=== PATIENT | female | born 1985 | race Caucasian/White ===

== ENCOUNTER 2018-02-18 13:15 | Inpatient (IN) | payer OTHER ==
[2018-02-18] MEDS ORDERED: OLIVE OIL 118 ML BTL MISC PRN (13:57)
[2018-02-18] MEDS ORDERED: MISOPROSTOL 200 MCG TAB PR PRN (13:57)
[2018-02-18] MEDS ORDERED: LIDOCAINE 1% 300 MG/30 ML SDV SC PRN (13:57)
[2018-02-18] MEDS ORDERED: LR 1,000 ML IV PRN (13:57)
[2018-02-18] MEDS ORDERED: TERBUTALINE SULFATE 1 MG/ML VIAL IV PRN (13:57)
[2018-02-18] MEDS ORDERED: IBUPROFEN 600 MG TAB PO PRN (13:57)
[2018-02-18] MEDS ORDERED: OXYTOCIN/RINGERS LACTATE 1,000 ML IV PRN (13:57)
[2018-02-18] MEDS ORDERED: EPSOM SALT 454 GM TP PRN (13:57)
[2018-02-18 14:17] LABS: PLATELET COUNT 177 10^3/uL (150-400)
[2018-02-18] MEDS ORDERED: AMMONIA AROMATIC 1 EACH AMP IH ONE (16:33)
[2018-02-18] MEDS ORDERED: OXYTOCIN 10 UNIT/ML VIAL ONE (16:34)
--- NOTE | 2018-02-18 17:43 | GHP ---
DATE OF ADMISSION: 02/18/2018 HISTORY UPON ADMISSION: The patient is a 32-year-old, G1, P0, at 39 weeks' gestation with an estimated due date of 02/25/2018, established by an 8-week ultrasound, who presents to Labor and Delivery after an ultrasound at the office today revealed oligohydramnios. The patient has been advised for induction due to the oligo and has been admitted to Labor and Delivery with initial blood work drawn and monitoring. The patient currently reports good movement, has bag of water intact, and no bleeding. The patient had stronger contractions on Sunday night that were a couple hours, approximately 6-7 minutes apart; however, these spontaneously resolved. The patient denies headache, nausea, vomiting, scotomata. The patient has not had a recent cervical exam. Recently, at [facility], [place], the patient was noted to have proteinuria on an office visit, at which point her blood pressure was totally normal and the patient was sent for PIH labs and urine protein checks. The patient was found to have normal PIH labs except for a uric acid of 7.1 and her platelets were 199,000. Her P to C ratio was elevated at 3.8. The patient had an ultrasound scheduled due to size less than dates, which was performed today. The estimated weight today is noted at 19th percentile, 6 pounds 11 ounces, and Dopplers were normal. Her total MINDI was only 3.7 cm with an MVP only at 2 cm. Grade 3 placenta. LABS: The patient's blood type is B positive with negative antibody screen. Initial CBC revealed a hematocrit of 36%, which has remained stable on several checks. Initial platelet level was 133,000 and this was rechecked in mid and was 196,000. RPR is nonreactive. Rubella immune. Hepatitis B surface antigen negative. HIV negative. Thyroid function testing was normal. Varicella showed immunity. Urinalysis and culture were negative. Verifi testing was negative and MSAFP was normal. 1-hour Glucola was normal. GBS culture was negative. CARE: The patient has been with [facility], [place] since 8 weeks gestation. By last menstrual on the 1st visit, the patient was felt to be over 11 weeks by last period, but the ultrasound revealed only 8 weeks 1 day. This established her due date of 02/25/2018. The patient had brownish spotting in the first trimester and ultrasound performed that showed a low-lying placenta previa. The patient's followup ultrasound at 20 weeks revealed the anterior placenta, but it was no longer low-lying. The patient had episodes in the late 1st trimester that were vasovagal episodes and near-syncope. The patient was encouraged to increase hydration and has been very diligent with that. The patient's exam at 34 weeks revealed size less than dates and she had an ultrasound performed showing an estimated weight at 29th percentile with a grade 3 placenta. Fluid level at that time was totally reassuring. See above for the more recent details of proteinuria. PAST MEDICAL HISTORY: Irregular menstrual cycles, exercise-induced asthma with no need for medication for years. Mild anemia in the past. PAST SURGICAL HISTORY: Odontectomy in high school, skin mole resections. ALLERGIES: To Augmentin, causing hives. CURRENT MEDICATIONS: vitamins, fish oil, calcium, iron supplement daily. SOCIAL HISTORY: The patient is . Her 's name is Rich. The patient is a nonsmoker. No alcohol or drug use. PHYSICAL EXAMINATION: GENERAL: Upon admission, the patient is a well-developed , well-nourished white female, with no signs of distress. The patient and her feel like they are managing the news of the oligohydramnios well and do not appear too anxious. VITAL SIGNS: The patient is afebrile. Blood pressure 122/74. LUNGS: Clear to auscultation bilaterally. CARDIOVASCULAR: Regular rate and rhythm. ABDOMEN: Reveals tracing showing a category 1 tracing with baseline in the 120s with good variability and accelerations. No decelerations noted. No contractions noted. EXTREMITIES: No signs of edema with normal DTRs. PELVIC EXAM: Cervix was 1 cm, 90% effaced, at -2 station with bag of water intact and vertex presentation. Options for cervical ripening were discussed with the patient, who has decided to proceed with a Wyatt catheter placement. The cervix was wiped off with Betadine soaked gauze pads x4. The Wyatt catheter was introduced through the cervix without any problems and then filled with 30 mL of sterile water. LABORATORY DATA: Upon admission, the CBC revealed a white count of 8000, hemoglobin and hematocrit 14 and 40, and platelet count is 177,000. PIH panel reveals normal creatinine of 0.6 with uric acid 7.4, SGOT at 59 and SGPT at 70. LDH is 921. Current P to C ratio is pending. ASSESSMENT: Intrauterine at 39 weeks' gestation, oligohydramnios with proteinuria and slightly elevated liver function tests. Elevated uric acid. GBS is negative. The patient currently with no signs of hypertension symptoms or edema. PLAN: Induction discussed with the patient and her and to proceed with cervical ripening a Wyatt catheter was placed. I counseled the patient that the current signs of elevated uric acid and slightly increased liver functions in the context of the proteinuria make me concerned she might evolve into preeclampsia. At this point, we are going to continue close surveillance and recheck the lab tests 6 hours after admission. The patient is aware if the liver function tests continue to rise that we will initiate magnesium sulfate for seizure prophylaxis. The patient also has had a history of lower platelets , so has possibly preexisting ITP, but we will also watch the platelet levels carefully. We will leave the Wyatt catheter in through the night and then allow the patient to eat dinner and then an early breakfast and we will initiate Pitocin in the morning. The patient is advised she has slightly increased risk of intolerance due to the oligohydramnios. /[id number]/MODL MTDD
[2018-02-18] MEDS ORDERED: diphenhydrAMINE 25 MG CAP PO PRN (19:37)
[2018-02-18 19:51] LABS: PLATELET COUNT 176 10^3/uL (150-400)
--- NOTE | 2018-02-18 21:31 | OBDEL ---
Info Type: Vaginal Presentation at Delivery: Vertex L&D Analgesia/Anesthesia Type: None GBS+: No - Care Provider Morning Show Host/SUPERVISOR OF OFFICIALS: Yudy Rueda Indications for Delivery: Oligohydramnios Vaginal Delivery - Delivery Provider Delivery Physician/CNM: Domonique Ventura - Labor and Delivery Onset of Contractions Date: 02/18/18 Onset of Contractions Time: 16:00 Onset of Contractions Type: Induced Rupture of Membranes Date: 02/18/18 Rupture of Membranes Time: 20:42 Rupture of Membranes Type: Artificial Amniotic Fluid Color: Clear Dilation Complete Date: 02/18/18 Dilation Complete Time: 20:25 Placenta Delivery Date: 02/18/18 Placenta Delivery Time: 20:50 Total Hours of Labor: 4 Non-surgical Procedures: Amniotomy Laceration: 1st Degree (perineum- midline, left inner labial lac, periurethral right) Repair: Other (Specify) (none) Vaginal Sponge Count Correct: Yes Vaginal Needle Count Correct: Yes Vaginal Sweep Performed: Yes EBL: 300 Delivery Events: None Delivery Comment: poor tracking of FHTs with pushing - picked up at times in 60s. rapid progress with pushing - Medications Labor Augmentation/Induction Methods Used: Wyatt Bulb Labor Augmentation/Induction Indication: Other (Specify) (oligohydranmios) Data RADHA: 02/25/18 Gestational Age: 39 week(s) and 0 day(s) [place] Delivery Date: 02/18/18 Delivery Time: 20:44 Sex of Infant: Female Score (1 Min): 8 Score (5 Min): 9 ICD10 Worksheet Patient Problems: Problems Problem Status Onset (spontaneous vaginal delivery) Acute
[2018-02-18] MEDS: ACETAMINOPHEN 325 MG TAB PO SCH (22:47)
[2018-02-19] MEDS: IBUPROFEN 600 MG TAB PO SCH ×4 (03:44→23:37)
[2018-02-19] MEDS: ACETAMINOPHEN 325 MG TAB PO SCH ×4 (04:36→20:17)
[2018-02-19 04:40] LABS: PLATELET COUNT 184 10^3/uL (150-400)
--- NOTE | 2018-02-19 09:51 | OBPP ---
Progress Note Assessment/Plan: Assessment: 32 yo G1 now P1, PPD#1 s/p last night at 4 after IOL for oligohydramnios in setting of elevated BPs and proteinuria, but not quite meeting criteria for the diagnosis of preeclampsia. BPs have been stable. LFTs with minimal change this morning - still slightly elevated. Plts stable. I/O not documented but pt voiding normal amount per her perspective. Plan: Continue routine pp cares. Will monitor BPs q 4 hours during the day. Repeat PIH labs tomorrow morning. . Chasidy Snow MD, FACOG [facility] 02/19/18 09:47 Subjective/ Course: Pt doing well. Feels great this morning. Minimal discomfort. Ambulating and voiding without difficulty. No ZHENG, no vis changes, no RUQ or epigastric pain. Mod lochia. going well so far - still figuring it out. 02/19/18 09:51 Objective: 02/19/18 04:28 02/19/18 04:28 Patient ABO/Rh B POSITIVE 02/18/18 13:20 Uric Acid 7.0 mg/dL (2.5-6.8) H 02/19/18 04:28 Total Bilirubin 0.2 mg/dL (0.1-1.4) 02/19/18 04:28 Conjugated Bilirubin 0.0 mg/dL (0.0-0.5) 02/19/18 04:28 Unconjugated Bilirubin 0.2 mg/dL (0.0-1.1) 02/19/18 04:28 AST 72 IU/L (14-46) H 02/19/18 04:28 ALT 72 IU/L (9-52) H 02/19/18 04:28 Lactate Dehydrogenase 659 IU/L (313-618) H 02/19/18 04:28 Temp Pulse Resp BP Pulse Ox 36.5 C 73 16 122/88 H 02/19/18 08:18 02/19/18 08:18 02/19/18 08:18 02/19/18 08:18 BPs since last night - have been 129-164 / 76-86 Gen - pleasant female, NAD CV - RRR chest -CTAB abd - soft, NT, fundus firm at u-2 ext - trace edema, calves nontender perineum - offer of exam declined Uterine Position/Fundal Height: Umbilicus -2 Uterine Tone: Firm
[2018-02-19] MEDS: DOCUSATE SODIUM 100 MG CAP PO SCH ×2 (11:20→20:08)
[2018-02-20] MEDS: ACETAMINOPHEN 325 MG TAB PO SCH (04:22)
[2018-02-20 04:26] LABS: PLATELET COUNT 167 10^3/uL (150-400)
[2018-02-20] MEDS: IBUPROFEN 600 MG TAB PO SCH (07:25)
--- NOTE | 2018-02-20 08:44 | OBPP ---
Progress Note Assessment/Plan: Assessment: 32 y/o PPD #2 s/p IOL secondary to oligo and suspected pre eclampsia without severe features Plan: D/c home today. Follow-up @ [facility] next week for a BP check. Discussed when to call [facility], ZHENG, scotomata, abdominal pain, excessive bleeding, fever or suspected mastitis. Rx Ibuprofen and APNO cream. 02/20/18 08:47 Subjective/ Course: Pt doing well. Feels great this morning. Minimal discomfort. Ambulating and voiding without difficulty. No ZHENG, no vis changes, no RUQ or epigastric pain. Mod lochia. going well so far - still figuring it out. 02/19/18 09:51 02/20/18 08:38 Pt is doing well this am. She has min perineal pain controlled with Ibuprofen. She is ambulating and voiding without difficulty and has min lochia. Breast feeding is going well, they are working baby's latch. Her nipples are mildly sore. She denies ZHENG, scotomata, RUQ pain and her swelling is much better. They are ready to d/c home. Objective: 02/20/18 04:15 02/20/18 04:15 Patient ABO/Rh B POSITIVE 02/18/18 13:20 Uric Acid 7.5 mg/dL (2.5-6.8) H 02/20/18 04:15 Total Bilirubin 0.2 mg/dL (0.1-1.4) 02/19/18 04:28 Conjugated Bilirubin 0.0 mg/dL (0.0-0.5) 02/19/18 04:28 Unconjugated Bilirubin 0.2 mg/dL (0.0-1.1) 02/19/18 04:28 AST 53 IU/L (14-46) H 02/20/18 04:15 ALT 65 IU/L (9-52) H 02/20/18 04:15 Lactate Dehydrogenase 591 IU/L (313-618) 02/20/18 04:15 Temp Pulse Resp BP Pulse Ox 37.3 C 59 L 16 107/64 02/20/18 04:00 02/20/18 04:00 02/20/18 04:00 02/20/18 04:00 Uterine Position/Fundal Height: Umbilicus -3 Uterine Tone: Firm Physical Exam - Physical Exam General Appearance: alert, no apparent distress Neck: non-tender, full range of motion, supple Respiratory: chest non-tender, lungs clear, normal breath sounds Cardiac/Chest: regular rate, rhythm Abdomen: normal bowel sounds Extremities: non-tender, swelling (no), Félix's sign (neg)
--- NOTE | 2018-02-20 08:54 | OBGCSDC ---
General Delivery Information - General Info : 1 Para: 1 Abortions: 0 Type: Vaginal L&D Analgesia/Anesthesia Type: None Admission Date: 02/18/18 Labs: Patient ABO/Rh B POSITIVE 02/18/18 13:20 Hct 36.7 % (38.0-47.0) L 02/20/18 04:15 - Hospital Course : Pt doing well. Feels great this morning. Minimal discomfort. Ambulating and voiding without difficulty. No ZHENG, no vis changes, no RUQ or epigastric pain. Mod lochia. going well so far - still figuring it out. 02/19/18 09:51 02/20/18 08:38 Pt is doing well this am. She has min perineal pain controlled with Ibuprofen. She is ambulating and voiding without difficulty and has min lochia. Breast feeding is going well, they are working baby's latch. Her nipples are mildly sore. She denies ZHENG, scotomata, RUQ pain and her swelling is much better. They are ready to d/c home. Vaginal - Delivery Provider Delivery Physician/CNM: Domonique Ventura - Diagnosis Labor: Induced Rupture of Membranes Type: Artificial Amniotic Fluid Color: Clear Laceration: 1st Degree (perineum- midline, left inner labial lac, periurethral right) Repair: Other (Specify) (none) Delivery Events: None - Procedures Non-surgical Procedures: Amniotomy - Delivery Non-surgical Procedures: Amniotomy EBL: 300 Data RADHA: 02/25/18 Gestational Age: 39 week(s) and 2 day(s) [place] Delivery Date: 02/18/18 Delivery Time: 20:44 Sex of Infant: Female Weight (gm): 2490 g Score (1 Min): 8 Score (5 Min): 9 Discharge Information - Discharge Information Prescriptions: Ibuprofen [Motrin (*)] 600 mg PO Q6H #30 tab Condition: Good Instruction/Follow Up: One Week, Four Weeks, Six Weeks
[2018-02-20] MEDS: DOCUSATE SODIUM 100 MG CAP PO SCH (09:12)
[2018-02-20 14:18] VITALS: BP 121/81
== END 2018-02-20 13:45 | disposition home or self-care (01) | DRG 775 ==
LOC: FLD 13:15
PROVIDERS: ADMIT Obstetrics & Gynecology; ATTEND Obstetrics & Gynecology
PROC: 10E0XZZ Delivery of Products of Conception, External Approach (ICD-10-PCS; principal; 2018-02-18)
PROC: 10907ZC Drainage of Amniotic Fluid, Therapeutic from Products of Conception, Via Natural or Artificial Opening (ICD-10-PCS; principal; 2018-02-18)
DX: O41.03X0 Oligohydramnios, third trimester, not applicable or unspecified (principal); Z37.0 Single live birth; Z3A.39 39 weeks gestation of pregnancy; O14.94 Unspecified pre-eclampsia, complicating childbirth; O70.0 First degree perineal laceration during delivery
CPT/HCPCS: J2590; J3105